=== PATIENT | male | born 2005 | race Caucasian/White ===

== ENCOUNTER 2024-06-15 15:31 | Emergency (ER) | payer OTHER ==
[2024-06-15 16:06] LABS: #Basophils 0.03 10x3/uL (0.0-0.2); %Basophils 0.4 % (0.0-1.0); %Eosinophils 0.7 % (0.0-10.0); %Lymphocytes 52.5 % (28.0-48.0); %Monocytes 9.9 % (0.0-4.0); %Neutrophils 36.2 % (31.0-61.0); Hematocrit 41.5 % (42.0-52.0); Hemoglobin 13.5 g/dL (14.0-18.0); Mean Corpuscular HGB CONC 32.5 g/dL (32.0-36.0); Mean Corpuscular Hemoglobin 28.2 pg (25.0-35.0); Mean Corpuscular Volume 86.8 fL (78.0-98.0); Mean Platelet Volume 8.8 fL (7.4-10.4); Platelet Count 239 10x3/uL (130-400); RBC Distribution Width 13.1 % (11.5-14.5); Red Blood Cell (RBC) Count 4.78 mill/uL (4.00-5.20)
[2024-06-15] MEDS ORDERED: Morphine 4 MG/ML VIAL ONE ×2 (16:13→17:10)
[2024-06-15] MEDS ORDERED: Ondansetron PF 4 MG/2 ML Vial ONE (16:13)
[2024-06-15] MEDS ORDERED: Ketorolac Tromethamine 30 MG (1 mL) VIAL ONE (16:13)
[2024-06-15 16:24] LABS: ALT (SGPT) 43 U/L (8-55); AST (SGOT) 34 U/L (10-45); Albumin 4.1 g/dL (3.5-5.0); Alkaline Phosphatase 94 U/L (50-130); Anion Gap 11 mmol/L (10-20); BUN (Urea Nitrogen) 10 mg/dL (8.4-21.0); Bilirubin, Total 0.6 mg/dL (0.2-1.2); Calc. Creatinine Clearance 0 mL/min (70-130); Calcium 9.4 mg/dL (7.8-10.44); Carbon Dioxide 25 mmol/L (22-29); Chloride 105 mmol/L (98-107); Estimated GFR 127; Globulin 3.5 g/dL (2.4-3.5); Glucose 98 mg/dL (70-105); Potassium 3.9 mmol/L (3.5-5.1); Protein, Total 7.6 g/dL (6.0-8.3); Sodium 137 mmol/L (136-145)
[2024-06-15] MEDS ORDERED: Lidocaine 1% w/Epinephrine 1:100K 20 ML VIAL ONE (16:24)
[2024-06-15 16:28] LABS: Troponin I Less than 0.010 ng/mL (< 0.028)
== END 2024-06-15 19:40 | disposition home or self-care (01) ==
LOC: ERS 15:31
DX: J93.83 Other pneumothorax (principal)
CPT/HCPCS: 36415; 71045; 80053; 84484; 85025; 93005; 96374; 96375; 96376; J1885; J2272; J2405

== ENCOUNTER 2024-06-19 15:27 | Outpatient (CLI) | payer OTHER | END 2024-06-19 15:28 | disposition home or self-care (01) | LOC: RAD 15:27 | PROVIDERS: ATTEND Thoracic Surgery (Cardiothoracic Vascular Surgery) | DX: J93.9 Pneumothorax, unspecified (principal) | CPT/HCPCS: 71046 ==